=== PATIENT | female | born 1960 | race Caucasian/White ===

== ENCOUNTER → 2017-10-28 | Outpatient (CLI) | payer MEDICARE, OTHER ==
[~2017-10-28] MED LIST: ALBUTEROL2.5 MG/0.5 INH; ANTIDEPRESSANT PO; ASPIR 8181 MG PO; ATIVAN0.5 M1 PO; ATIVAN0.5 MG PO; CALCIUM 500 +1 EAC5 PO; CARVEDILOL12.5 MG PO; CELEXA40 MG PO; CLEOCIN HCL300 MG PO; CLONIDINE HCL0.1 MG PO; DOLOPHINE HCL10 MG PO; DOLOPHINE HCL5 MG PO; DUONEB 2.5-0.5 M3 ML INH; IRON PO; KLOR-CON 1010 MEQ PO; LASIX 20 MG TAB20 MG PO; LEVAQUIN 500 M500 M2 PO; LIDODERM 5%1 PATC1 TRANSDERM; LIORESAL 10 MG10 MG PO; LISINOPRIL10 MG PO; MEDROLDOSEPACK PO; MELATONIN3 MG PO; METHADONE HCL5 MG PO; MULTIVITAMINS PO; NUVIGIL150 MG PO; OMEPRAZOLE40 MG PO; OXYCODONE HCL20 M1 PO; OXYGEN; OXYGEN NASAL; PREDNISONE 10 M10 M1 PO; PREDNISONE 10 M10 MG PO; PREDNISONE50 MG PO; PRILOSEC40 MG PO; PROTONIX40 M1 PO; RANITIDINE HCL300 MG PO; SERTRALINE HCL50 MG PO; VIT B12 PO; ZANAFLEX2 MG PO; ZANAFLEX4 MG PO; ZANTAC 150MG T150 MG PO; ZOLOFT50 MG PO
--- NOTE | 2017-11-02 07:21 | PAINCON ---
[facility] [address] [place] [address] PAIN MANAGEMENT CONSULTATION Name: VERMABRIDGETT S Room: [facility] Malathi#: [id number] Admission: 10/28/17 Attend Phys: Simon Smith Discharge: Date of : 58 Report #: [id number] THIS REPORT FOR: //name// CC: Jelly Valderrama The patient is a very pleasant 57-year-old female typically treated for chronic pain syndrome. She is status post both cervical and lumbar decompressive laminectomies requiring high risk complex medication management. Last seen in the pain clinic on 09/02/2017 and continued on baseline medications. Returns to the pain clinic today. She notes current pain medications are helping with chronic pain though she still rates her pain an 8 on VAS. She states she has lost about 9 pounds since last visit, simply has had some anorexia. PHYSICAL EXAMINATION: Does show a 5 feet 2 inches, 196 pounds female with a BMI of 35 kilograms per meter squared. She is using supplemental oxygen and oxygen saturation is 92% on 3 liters. Blood pressure is 115/61, pulse 93 and respirations 24. She uses a walker for balance. She had her spinal cord stimulator replaced by Dr. Lopez at the end of last year (09/18/2017). She has been unable to use this because she has not been able to charge the battery due to lack of the hardware device for charging. She notes that the device rep is looking into getting the new director craft center for her. 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 Patterson regarding the tremor issue. She may consider starting on a low dose Mirapex type agent. Otherwise from a pain standpoint, she is doing well on current medication including methadone 5 mg 2 in the morning, 1 at noon and 2 at night and tizanidine 4 mg for spasm. She uses a low dose lorazepam occasionally for insomnia. We reviewed the fact that opiate medications are being used to provide analgesia adequate to support activities of daily living, not attempting to achieve a specific pain score on the 0-10 Visual Analog Scale. The current opiate medications are providing sufficient analgesia to allow the patient to participate in activities of daily living. The patient is not exhibiting any aberrant behavior suggestive of drug diversion. The patient is not having any adverse reactions to medications. The patient is not suffering from daytime somnolence or mental acuity changes. The patient is managing opiate-induced constipation with appropriate wtgz-szw-pkqmofh agents and dietary considerations. The patient was counseled on concern for caution with operating a motor vehicle while using opiate medications. A physical exam was performed and the patient's functional status was evaluated. All patients with back pain were advised against the bed rest greater than 4 days and were advised to return to normal activities. [place] [address] PAIN MANAGEMENT CONSULTATION Name: BRIDGETT VERMA Room: [facility] Servin#: [id number] Admission: 10/28/17 Attend Phys: Simon Smith Discharge: Date of : 58 Report #: [id number] noted and the treatment plan was reviewed with the patient. All current medications, both prescribed and OTC were reviewed and reconciled on the electronic medical record. Tobacco screening was accomplished and smoking cessation was advised when indicated. BMI was noted and diet/exercise modification was recommended for all patients following outside normal parameters. I reviewed with the patient today their responsibilities to safeguard prescription medications, reviewed their responsibility to utilize medications only as prescribed by the physician. They are to seek and receive pain medications only from 1 physician group ( [facility]). They are to use 1 pharmacy and keep the clinic informed if they change pharmacies. Their responsibilities include making followup visits in a timely fashion and to avoid abrupt discontinuation of medication usage. Their responsibilities further include bringing their medications (bottles from the pharmacy with residual pills) to the visit for possible confirmation of pill counts and the patient understands it is their responsibility to submit to random drug screens to ensure both that the medications prescribed are present, and that no other controlled substances are present. All prescriptions provided today were generated electronically. PHYSICAL EXAMINATION: As noted above. RECOMMENDATION: Continue current medication unchanged for another 2 months. Follow up at that time and earlier if needed. I reviewed the patient's last random drug screen a little greater than a year ago from 01/2016. We will endeavor to repeat a random drug screen at next visit. Discharged in good and stable condition. <ELECTRONICALLY SIGNED> By: Tanner Valderrama DO 11/02/17 0721 [id number] Valderrama DO /nt
== END ==
LOC: M.PC 01:38
DX: G89.4 Chronic pain syndrome (principal); Z98.890 Other specified postprocedural states

== ENCOUNTER → 2017-12-23 | Outpatient (CLI) | payer MEDICARE, OTHER ==
[~2017-12-23] MED LIST changes: +NITROGLYCERIN0.4 MG SUBLING; +SINGULAIR 10 MG10 M1 PO; +SYMBICORT160 MCG/4. INH
--- NOTE | 2017-12-25 09:51 | PAINCON ---
[address] [address] PAIN MANAGEMENT CONSULTATION Name: VERMABRIDGETT S [id number] Admission: 12/23/17 Attend Phys: Simon Smith Discharge: Date of : 58 Report #: [id number] THIS REPORT FOR: //name// CC: Jelly Valderrama The patient is a 57-year-old female being treated for chronic pain syndrome. She is status post cervical and lumbar decompressive laminectomies, requiring complex medication management. She has a spinal cord stimulator, which had been placed quite some time ago. She had the IPG replaced in [facility] however, she apparently does not have a component needed to charge the IPG. Hence, it has been nonfunctional. Nonetheless, the patient presents to pain clinic today noting medications have been helpful. She rates her pain as 8 on a VAS. She notes pain is primarily across the back, into the buttocks. No significant radicular symptoms at this time. The patient claims she quit smoking 3 years ago. The last random drug screen 10/28/2017 was positive for methadone as expected, was also positive for cotinine. I queried the patient about this and she held steadfast that she had not been smoking though her does smoke and she is exposed to secondhand smoke. She does note she has had a 10-pound weight loss. She is down to 182 pounds, BMI is 33.9 kilograms per meter squared. Blood pressure 122/74, pulse is 102, respirations are 20. She is alert and oriented to person, place and time, judged to be a reasonable historian. With 3 liters of supplemental oxygen, her O2 sat is only 88%. She has some significant COPD. We talked about therapeutic options today. We will continue the patient on her baseline narcotic including methadone 5 mg, 2 in the morning, 1 at noon, 2 at night with occasional tizanidine for spasm. The patient congratulated about general smoking cessation and encouraged regarding same. We have elected to continue baseline narcotic unchanged. Follow up in 2 months for reevaluation, earlier if needed. <ELECTRONICALLY SIGNED> By: Tanner Valderrama DO 12/25/17 0951 1521 1947Tanner Valderrama DO /nt
== END ==
LOC: M.PC 02:30
DX: G89.4 Chronic pain syndrome (principal); Z79.899 Other long term (current) drug therapy

== ENCOUNTER → 2018-02-17 | Outpatient (CLI) | payer MEDICARE, OTHER ==
--- NOTE | 2018-02-18 07:50 | PAINCON ---
[facility] [address] [place] [address] PAIN MANAGEMENT CONSULTATION Name: VERMABRIDGETT [facility] [id number] Admission: 02/17/18 Attend Phys: Simon Smith Discharge: Date of : 58 Report #: [id number] THIS REPORT FOR: //name// CC: Jelly Valderrama The patient is a 57-year-old female, prior seen in the pain clinic on 12/23/2017. Returns to pain clinic today for prolonged visit. She was seen from 9:50-10:20. Greater than 50% of this time was spent counseling the patient. The patient has a spinal cord stimulator in place, which does help with back and leg pain. She has ongoing multiple pain generators. Axial back and lumbar radicular pain with comorbidities including significant psychiatric issues and COPD, requiring BiPAP with daytime somnolence due to ongoing sleep disruption and medications. She had her IPG changed for the spinal cord stimulator in 08/2017. This does seem to be helpful. She continues with 5 mg methadone, 2 tablets in the morning, 1 at noon, and 2 at night. She uses no breakthrough opiates. Does use tizanidine 4 mg t.i.d. for spasm. She is having recurrent falls. In fact, she fell out of her bed simply falling asleep sitting on the side of the bed due to sequelae of her sleep apnea and soporific effects of medication. Her psychiatrist started her on aripiprazole. After one week, her suggested she discontinue that due to ongoing dramatic sedation. She notes that her physical functional status is significantly limited by COPD and shortness of breath (she uses 3 liters per minute nasal cannula with fairly deconditioned general physical status). PHYSICAL EXAMINATION: Today is relatively unchanged, 5 feet 2 inches, 172 pounds female, BMI is 31.6 kilograms per meter, 57 years of age. Blood pressure 132/76, pulse 96, respirations 16. Oxygen saturation is diminished at 90% on 3 liters nasal cannula. She does have osteoporosis and gets an annual infusion for same. She is generally alert and oriented at present, though notes that it is very easy for her to fall asleep. She rises from chair using armrest, a little bit of an ataxic gait. Diffuse tenderness across the low back. Lower extremity strength is symmetric. We reviewed the fact that opiate medications are being used to provide analgesia adequate to support activities of daily living, not attempting to achieve a specific pain score on the 0-10 Visual Analog Scale. The current opiate medications are providing sufficient analgesia to allow the patient to participate in activities of daily living. The patient is not exhibiting any aberrant behavior suggestive of drug diversion. The patient is not having any adverse reactions to medications. The patient is not suffering from daytime somnolence or mental acuity changes. The patient [place] [address] PAIN MANAGEMENT CONSULTATION Name: VERMABRIDGETT S [facility] [id number] Admission: 02/17/18 Attend Phys: Simon Smith Discharge: Date of : 58 Report #: [id number] constipation with appropriate pgbg-xfq-[id number] agents and dietary considerations. The patient was counseled on concern for caution with operating a motor vehicle while using opiate medications. A physical exam was performed and the patient's functional status was evaluated. All patients with back pain were advised against the bed rest greater than 4 days and were advised to return to normal activities. Pain score assessment was noted and the treatment plan was reviewed with the patient. All current medications, both prescribed and OTC were reviewed and reconciled on the electronic medical record. Tobacco screening was accomplished and smoking cessation was advised when indicated. BMI was noted and diet/exercise modification was recommended for all patients following outside normal parameters. I reviewed with the patient today their responsibilities to safeguard prescription medications, reviewed their responsibility to utilize medications only as prescribed by the physician. They are to seek and receive pain medications only from 1 physician group ( [facility]). They are to use 1 pharmacy and keep the clinic informed if they change pharmacies. Their responsibilities include making followup visits in a timely fashion and to avoid abrupt discontinuation of medication usage. Their responsibilities further include bringing their medications (bottles from the pharmacy with residual pills) to the visit for possible confirmation of pill counts and the patient understands it is their responsibility to submit to random drug screens to ensure both that the medications prescribed are present, and that no other controlled substances are present. All prescriptions provided today were generated electronically. RECOMMENDATIONS: 1. I had a long discussion with the patient and her today. Strongly recommend that she follow up with her psychiatrist regarding less sedating central-acting agents for her bipolar disorder. 2. Strongly recommend she follow up with her child welfare director regarding perhaps addition of a stimulant to help with her sleep apnea (modafinil? Adderall?). We will discontinue tizanidine due to concern for sedation and rotate the baclofen. The patient has weaned down dramatically on her opiate analgesics, I took over her care in 12/2014. At that time, she was taking 240 mEq of morphine via OxyContin and oxycodone. We have weaned down to 20 mg of methadone a day, roughly equivalent to 80 mg of morphine. We will continue this agent with an eye towards weaning as able. I have taken the liberty of writing for 2 months of current medication. We will have her follow up with [place] [address] PAIN MANAGEMENT CONSULTATION Name: BRIDGETT VERMA [facility] [id number] Admission: 02/17/18 Attend Phys: Simon Smith Discharge: Date of : 58 Report #: [id number] Discharged in good and stable condition after prolonged visit, greater than 30 minutes spent counseling the patient and her today. <ELECTRONICALLY SIGNED> By: Tanner Valderrama DO 02/18/18 0750 1425 1920Tanner Valderrama DO /nt
== END ==
LOC: M.PC 09:30
DX: M54.5 Low back pain (principal); J44.9 Chronic obstructive pulmonary disease, unspecified; M79.606 Pain in leg, unspecified

== ENCOUNTER → 2018-05-13 | Outpatient (CLI) | payer MEDICARE, OTHER ==
[~2018-05-13] MED LIST changes: +AUGMENTIN 875-1 EACH PO; +DILAUDID 2 MG TA2 MG PO; +NYSTATIN100000 UNI SW&SWALLOW
--- NOTE | 2018-06-04 17:38 | PAINCON ---
[address] [address] PAIN MANAGEMENT CONSULTATION Name: VERMABRIDGETT S Room: [facility] Malathi#: [id number] Admission: 05/13/18 Attend Phys: Khari Moody MD Discharge: Date of : 58 Report #: [id number] THIS REPORT FOR: //name// CC: Jelly Moody DATE OF SERVICE: 05/13/2018 This is my first visit with the patient. She has been followed by Dr. Tanner Valderrama. FOLLOWUP HISTORY: The patient is a 57-year-old female who has been followed in the pain clinic because of chronic pain. She has a history of a spinal cord stimulator in place. This has been helpful with her back pain and leg pain. She has multiple pain generators ongoing. She has axial pain and lumbar radicular pain with comorbidities, which include significant psychiatric issues, COPD requiring BiPAP with daytime somnolence due to ongoing sleep disruption and medications. She has a spinal cord stimulator in place since 2016. This was in August that it was placed. She feels that it has been helpful. Continues to find methadone 5 mg 2 tablets in the morning, 1 at noon, and 2 at night helpful. She is not using any breakthrough opioid medications. She does use tizanidine to help with muscle spasms. She has fallen. She was sitting on the bedside and fell asleep. She has been followed by her psychiatrist. She is on aripiprazole. Her physical function and status is significantly limited by her COPD and shortness of breath. She uses 3 liters per minute nasal cannula and is very deconditioned physically. Dr. Valderrama talked with the patient and her regarding her medications. They were to speak with him in regards to the sedating effects of medication for her bipolar disorder. Dr. Valderrama suggested follow up with her occupational medicine specialist regarding the possible use of a stimulant such as Adderall or modafinil. He discontinued the use of her tizanidine because of the sedation. The patient was on a morphine equivalent 240 mEq back in 2014 when he saw her. At this juncture, she has been decreased to morphine equivalents of 80 mg. She has returned today for renewal of her medications. ALLERGIES: SULFA AND LATEX. CURRENT MEDICATIONS: Albuterol 2.5 mg, aspirin 81 mg, Celexa 40 mg, clonidine 0.1 mg, Lasix 20 mg 2 tablets b.i.d., duloxetine, DuoNeb 2.5/0.5 inhalations 4 times daily, Levaquin, methadone 2 tablets 5 mg a.m. and 1 tablet at noon, and 2 tablets at bedtime, multivitamin, oxygen, Protonix 40 mg, potassium, prednisone 10 mg, Zanaflex 2 tablets 2 mg, iron supplement, and vitamin B12. PAST MEDICAL HISTORY: Anemia, asthma, heart disease, coronary artery disease, kidney disease, single kidney, acid reflux, irritable bowel syndrome, vertigo, [place] [address] PAIN MANAGEMENT CONSULTATION Name: BRIDGETT VERMA Room: [facility] Malathi#: [id number] Admission: 05/13/18 Attend Phys: Khari Moody MD Discharge: Date of : 58 Report #: [id number] syncope, panic attacks, and hypertension. PAST SURGICAL HISTORY: Total hip replacement in 2008 on the right side, left total hip replacement in 2008, and neck surgery. Spinal cord stimulator, the patient states that she has had spinal cord replaced and then has ____ spinal cord in place. PAIN CLINIC ASSESSMENT: 1. History of osteoarthritis. The patient states that she has osteoporosis. 2. Height 5 feet 2 inches, weight 194 pounds, BMI is 35. 3. Vital signs: Blood pressure 131/70, heart rate 100, respiratory rate 18, room air saturation 90% on 3 liters of oxygen. Temperature 98.1. Pain score 9/10 pain in lower back as well as pain in the neck. 4. Fall risk. The patient has not fallen in the last 3 months. 5. Blood thinner. The patient is not on a blood thinning medication. 6. History of hypertension. The patient is being treated for hypertension. 7. Opioids greater than 6 weeks. The patient does receive opioid medications from the pain clinic. 8. Risk assessment tool. 9. Functional assessment tool. 10. Recreational drug use. The patient denies use of recreational drug use. 11. Tobacco: The patient has a 30-pack year history of smoking. 12. Alcohol: The patient denies use of alcohol. PHYSICAL EXAMINATION: GENERAL: The patient is an obese white female, who appears her stated age. She is alert and oriented x 3. Affect is appropriate. Speech is fluent. HEENT: Normocephalic, atraumatic. Extraocular eye muscles intact. The patient has nasal cannula in place with 3 liters of oxygen running. NECK: Without adenopathy or JVD. LUNGS: Decreased breath sounds given secondary to the patient's body habitus. HEART: Regular rate. ABDOMEN: Protuberant. MUSCULOSKELETAL: Without significant scoliosis, kyphosis, or lordosis. The patient has complained of back pain. Has low back pain. She has pain in her hips. IMPRESSION: 1. Low back pain as well as hip pain. 2. Anemia. 3. Asthma. 4. Heart disease. 5. Coronary artery disease. 6. Kidney disease. 7. Single kidney. 8. [place] [address] PAIN MANAGEMENT CONSULTATION Name: BRIDGETT VERMA Room: [facility]#: [id number] Admission: 05/13/18 Attend Phys: Khari Moody MD Discharge: Date of : 58 Report #: [id number] 9. Irritable bowel syndrome. 10. Vertigo. 11. Syncope. 12. Panic attacks. 13. Hypertension. RECOMMENDATIONS: We discussed treatment options with the patient. We will continue with her current medical regimen. We will continue to monitor her respiratory status. Hopefully, she will be able to continue to maintain use of opioid medications and avoid untold complications. A script for her medications have been written. A script for tizanidine and methadone have been renewed. She will call us if she has any concerns. We would like to thank you for letting us participate in her care. We hope she continues to improve. <ELECTRONICALLY SIGNED> By: Khari Moody MD 06/04/18 1738 [id number] [id number]. Javier Moody MD /nt
== END ==
LOC: M.PC 05:01
DX: M54.5 Low back pain (principal); M25.552 Pain in left hip; I25.10 Atherosclerotic heart disease of native coronary artery without angina pectoris; J45.909 Unspecified asthma, uncomplicated; K21.9 Gastro-esophageal reflux disease without esophagitis; I51.9 Heart disease, unspecified; N28.9 Disorder of kidney and ureter, unspecified; D64.9 Anemia, unspecified

== ENCOUNTER → 2018-07-08 | Outpatient (CLI) | payer MEDICARE, OTHER ==
[~2018-07-08] MED LIST changes: -AUGMENTIN 875-1 EACH PO; -DILAUDID 2 MG TA2 MG PO; -NITROGLYCERIN0.4 MG SUBLING; -NYSTATIN100000 UNI SW&SWALLOW; -SINGULAIR 10 MG10 M1 PO; -SYMBICORT160 MCG/4. INH
--- NOTE | 2018-07-12 10:00 | PAINCON ---
[address] [address] PAIN MANAGEMENT CONSULTATION Name: RACHEL VERMANA Natalia Room: [facility].#: [id number] Admission: 07/08/18 Attend Phys: Khari Moody MD Discharge: Date of : 58 Report #: [id number] THIS REPORT FOR: //name// CC: Jelly Moody DATE OF SERVICE: 07/08/2018 CHIEF COMPLAINT: Chronic pain. HISTORY: The patient is a 58-year-old female who has been followed in the Pain Clinic because of chronic pain. She has a history of spinal cord stimulator placement. She is having pain and discomfort today, which is most problematic involving her left hip. She states that she has had a replacement of her hip on the left side. This was in about 2006. She did recurrent fall about 3 weeks ago. She has noted some increased pain since that fall. States that she is going to see an orthopedic surgeon in the next few days. Continues to have some axial pain as well as some lumbar radicular pain. As you may recall, she has some problems with COPD. States that she stopped smoking about 4 years ago. She is on BiPAP. Does have some somnolence. She has returned today with a desire of having her medications renewed. ALLERGIES: SULFA and LATEX. CURRENT MEDICATIONS: Albuterol 2.5 mg, aspirin 81 mg, Celexa 40 mg, clonidine 0.1 mg, Lasix 20 mg, 2 tablets b.i.d., duloxetine 2.5/0.5 four inhalations daily, Levaquin, methadone 2 tablets 5 mg a.m. and 1 tablet at noon and 2 tablets at bedtime, multivitamin, oxygen, Protonix 40 mg, potassium, prednisone 10 mg, Zanaflex 2 tablets of 2 mg, iron supplement, vitamin B12. PAIN CLINIC ASSESSMENT/PQRS: 1. History of osteoarthritis. The patient is being treated for osteoarthritis. She has had hip replacement on the left. Also, states that she has been treated for rheumatoid arthritis. 2. Height 5 feet 2 inches, weight 186 pounds, BMI is 34.1. 3. Vital signs: Blood pressure 147/80, heart rate 91, respiratory rate 16, room air saturation is 98% on 3 liters nasal cannula. The patient has nasal cannula in place. Temperature 98.3. 4. Pain score 10/10. 5. Pain intensity 10/10. 6. Fall risk. The patient states that she has fallen about 3 weeks ago. Feels that that might have some implication on the pain and discomfort she is having in her hip. 7. Blood thinner. The patient is not on a blood thinning medication. 8. History of hypertension. The patient is being treated for hypertension. 9. Opioids greater than 6 weeks. The patient [place] [address] PAIN MANAGEMENT CONSULTATION Name: BRIDGETT VERMA Room: [facility]#: [id number] Admission: 07/08/18 Attend Phys: Khari Moody MD Discharge: Date of : 58 Report #: [id number] from one source, the Pain Clinic. 10. Risk assessment tool. 11. Functional assessment tool. 12. Recreational drug use. The patient denies use of recreational drugs. 13. Tobacco: The patient has a 15-agbh-asxx history of smoking. States that she stopped 4 years ago. 14. Alcohol: The patient denies use of alcohol. 15. The patient does ____ smoked from her significant other who does smell significantly of tobacco. PHYSICAL EXAMINATION: GENERAL: The patient is a well-developed, obese white female, appears her stated age. She is alert and oriented x 3. Affect is appropriate. Speech is fluent. HEENT: Normocephalic, atraumatic. Extraocular eye muscles intact. The patient is on nasal cannula with 3 liters of oxygen running. NECK: Without adenopathy or JVD. LUNGS: Decreased breath sounds secondary to the patient's body habitus. HEART: Regular rate. ABDOMEN: Protuberant. Bowel sounds present. MUSCULOSKELETAL: Without significant scoliosis, kyphosis or lordosis. The patient is in a chair. Does note some complaint of pain in her low back as well as pain down in her hips and pain into the left hip in particular. IMPRESSION: 1. Low back pain as well as left hip replacement, status post fall about 3 weeks ago with pain in the left hip. 2. Anemia. 3. Asthma. 4. Heart disease. 5. Coronary artery disease. 6. Kidney disease. 7. Single kidney. 8. Acid reflux. 9. Irritable bowel. 10. Vertigo. 11. Syncope. 12. Panic attacks. 13. Hypertension. RECOMMENDATIONS: We discussed treatment options with the patient. At this juncture, we will continue with her current medical regimen. A script for tizanidine 4 mg 1 p.o. t.i.d., methadone 5 mg 1 tablet or 2 tablets in the morning. Total of 10 mg 1 tablet at noon, 5 mg 2 tablets at bedtime, 10 mg for a total of 25 mg of methadone, 150 tablets have been dispensed. The patient will follow up in [address] [place] [address] PAIN MANAGEMENT CONSULTATION Name: BRIDGETT VERMA Room: [facility]#: [id number] Admission: 07/08/18 Attend Phys: Khari Moody MD Discharge: Date of : 58 Report #: [id number] We would like to thank you for letting us participate in her care. We hope she continues to improve. <ELECTRONICALLY SIGNED> By: Khari Moody MD 07/12/18 1000 1453 [id number]. Javier Moody MD /nt
== END ==
LOC: M.PC 05:18
DX: G89.29 Other chronic pain (principal); M54.5 Low back pain; D64.9 Anemia, unspecified; J45.909 Unspecified asthma, uncomplicated; N28.9 Disorder of kidney and ureter, unspecified; K21.9 Gastro-esophageal reflux disease without esophagitis; I10 Essential (primary) hypertension; R42 Dizziness and giddiness; R55 Syncope and collapse; K58.9 Irritable bowel syndrome, unspecified; F41.0 Panic disorder [episodic paroxysmal anxiety]; I51.9 Heart disease, unspecified; I25.10 Atherosclerotic heart disease of native coronary artery without angina pectoris

== ENCOUNTER 2018-08-17 13:49 | Inpatient (IN) | payer MEDICARE, OTHER ==
[~2018-08-17] VITALS: Ht 157.5 cm; Wt 79.8 kg
[2018-08-17] MEDS ORDERED: SYMBICORT160 MCG/4. INH (14:16)
[2018-08-17] MEDS ORDERED: SINGULAIR 10 MG10 M1 PO (14:16)
[2018-08-17 14:42] LABS: HEMATOCRIT 35.5 % (37.0-47.0); HEMOGLOBIN 11.4 gm/dL (12.0-15.0); MCH 26.3 pg (26.0-34.0); MCV 82.3 fL (80.0-100.0); MPV 7.9 fl. (7.2-11.1); NUCLEATED RBCS 0 /100WBC; PLATELET COUNT* 149 thou/uL (150-400); RBC 4.32 mil/uL (4.20-5.00); RDW-CV 14.8 % (10.5-14.5)
[2018-08-17 14:49] LABS: INR 1.1; PROTIME 10.8 Seconds (9.20-11.50)
[2018-08-17 14:53] LABS: ANION GAP 5 mmol/L (7-16); BUN 20 mg/dL (7-18); CALCIUM 9.7 mg/dL (8.5-10.1); CHLORIDE 99 mmol/L (98-107); CO2 35 mmol/L (21-32); CREATININE 1.4 mg/dL (0.6-1.3); GLUCOSE 117 mg/dL (70-99); POTASSIUM 4.5 mmol/L (3.5-5.1); SODIUM 139 mmol/L (136-145)
[2018-08-17 14:56] LABS: BE 7.7 mmol/L (-2 to +3); HCO3 35.2 mmol/L (22.0-26.0); PCO2 64.2 mmHg (35.0-45.0); PO2 66.2 mmHg (75.0-100.0); pH 7.357 (7.340-7.450)
[2018-08-17 15:00] LABS: ALBUMIN 2.6 g/dL (3.4-5.0); ALKALINE PHOSPHATASE 311 U/L (46-116); LIPASE 247 U/L (73-393); NT-PRO BRAIN NAT PEPTIDE 334 pg/mL (<300); SGOT 376 U/L (15-37); SGPT 48 U/L (30-65); TOTAL BILIRUBIN 0.3 mg/dL (<0.1-1.0); TOTAL PROTEIN 6.9 g/dL (6.4-8.2); TROPONIN-I LEVEL <0.06 ng/mL (<0.06)
[2018-08-17 15:20] LABS: ABSOLUTE LYMPHOCYTES 1.4 thou/uL (0.8-5.3); ABSOLUTE MONOCYTES 0.1 thou/uL (0.0-1.2); ABSOLUTE NEUTROPHILS 6.5 thou/uL (1.6-8.1); ATYPICAL LYMPHS 9 %; PLATELET ESTIMATE ADEQUATE
--- NOTE | 2018-08-17 16:48 | EKG ---
[place] [address] ELECTROCARDIOGRAM REPORT Name: BRIDGETT VERMA Room: [place] [address] ADM IN [facility]#: [id number] Admission: 08/17/18 Attend Phys: Minoo Merino MD Discharge: Date of : 58 Report #: [id number] THIS REPORT FOR: //name// [facility] ED Test Date: 2018-08-17 Test Time: 14:28:23 Pat Name: BRIDGETT VERMA Department: Room: [facility] Gender: [place] Repairer: Kurt POOLE : 1960 Requested By: Mejia Norton Order Number: [id number] MD: Rowdy Morrison Measurements Intervals [place] Rate: 84 P: 34 HI: 140 QRS: -25 QRSD: 88 T: 31 QT: 385 QTc: 456 Interpretive Statements Sinus rhythm Borderline left axis deviation Borderline low voltage, extremity leads Compared to ECG 10/21/2015 23:38:08 Sinus tachycardia no longer present Electronically Signed On 08-17-2018 16:48:23 PARAOPTOMETRIC by Rowdy Morrison [email or web address] <ELECTRONICALLY SIGNED> By: Rowdy Morrison MD, FAC 08/17/18 1648 1428 1428 Rowdy Morrison MD, [facility] /EPI
[2018-08-17 17:53] LABS: URINE BILIRUBIN NEGATIVE (Negative); URINE BLOOD 1+ (Negative); URINE CLARITY CLEAR; URINE COLOR YELLOW; URINE GLUCOSE-RANDOM NEGATIVE (Negative); URINE KETONES NEGATIVE (Negative); URINE LEUKOCYTES-REFLEX 1+ (Negative); URINE NITRITE-REFLEX NEGATIVE (Negative); URINE PROTEIN NEGATIVE (Negative); URINE SPECIFIC GRAVITY 1.015 (1.005-1.030); URINE UROBILINOGEN 0.2 E.U./dl (0.2-1.0)
[2018-08-17 18:01] LABS: BACTERIA-REFLEX None Seen /HPF (None Seen); CRYSTALS None Seen /LPF (None Seen); HYALINE CASTS 0-3 Few /LPF (None Seen); SQUAMOUS NONE SEEN /LPF (0-3); URINE RBC 0-2 Rare /HPF (0-2); URINE WBC-REFLEX None Seen /HPF (0-5)
[2018-08-17 18:29] VITALS: BP 130/65
--- NOTE | 2018-08-17 19:12 | NUR ---
ADMITTED TO 305 THIS EVENING FROM ER. CONDITION STABLE, VSS, NO DISTRESS NOTED. EXT ASSIST WITH TRANSFER, UNSTEADY GAIT AND WEAKNESS NOTED. SETTLED IN BED, CALL LIGHT IN REACH, RAILS UP FOR REPOSITIONING. ABDOMEN DISTENDED, GREATER ON THE RIGHT, REBOUND TENDERNESS NOTED. DOES WEAR BRIEF FOR URGENCY, ORIENTED TO ROOM, SR ON MONITOR, NO ECTOPY NOTED. REPORT GIVEN TO BROADBAND TECHNICIAN NURSE, CONT POC.
[2018-08-17 20:00] VITALS: BP 144/70
[2018-08-17] MEDS ORDERED: NITROGLYCERIN0.4 MG SUBLING (20:32)
[2018-08-17 21:32] VITALS: BP 116/66
[2018-08-18] VITALS: BP 98/60
[2018-08-18 04:00] VITALS: BP 128/82
[2018-08-18 05:17] LABS: HEMATOCRIT 37.1 % (37.0-47.0); HEMOGLOBIN 11.9 gm/dL (12.0-15.0); MCH 26.7 pg (26.0-34.0); MCV 83.3 fL (80.0-100.0); MPV 8.4 fl. (7.2-11.1); RBC 4.45 mil/uL (4.20-5.00); RDW-CV 14.9 % (10.5-14.5); WBC 9.2 thou/uL (4.0-11.0)
[2018-08-18 05:31] LABS: ALBUMIN 2.6 g/dL (3.4-5.0); CALCIUM 9.5 mg/dL (8.5-10.1); CREATININE 1.4 mg/dL (0.6-1.3); MAGNESIUM 2.2 mg/dL (1.8-2.4); POTASSIUM 5.1 mmol/L (3.5-5.1); TOTAL BILIRUBIN 0.2 mg/dL (<0.1-1.0)
--- NOTE | 2018-08-18 06:57 | NUR ---
PATIENT ARRIVED ON FLOOR PRIOR TO SHIFT CHANGE. PATIENT ADMISSION HISTORY AND ASSESSMENT WAS COMPLETED CHARTED. PATIENT WAS GIVEN PAIN MEDICINE TWICE FOR ABDOMINAL PAIN WITH SOME RELIEF. PATIENT WEARS O2 3 A HOME AND 3L WITH BIPAP AT NIGHT. WILL CONTINUE TO MONITOR.
[2018-08-18 07:50] VITALS: BP 120/64
--- NOTE | 2018-08-18 10:05 | NUR ---
SW met with pt and pt to complete initial assessment, introduce self, and SW role. Pt alert, oriented. Pt lives at home with . Pt has oxygen at 3L at home through [employer] and a Bipap and a rollator. Pt has hx of HH services long ago. Pt does not anticipate any dc needs at this time. SW to continue to follow.
[2018-08-18 11:45] VITALS: BP 122/54
[2018-08-18 16:10] VITALS: BP 102/42
--- NOTE | 2018-08-18 18:58 | NUR ---
PATIENT RESTING IN BED. PATIENT IS UP STANDBY ASSIST FOR TRANSFER TO [facility]. PATIENT HAS HAD COMPLAINTS OF RUQ PAIN THROUGHOUT DAY, TREATED PARTIALLY WITH MEDICATION. PATIENT HAS FAIR TO POOR APPETITE. PATIENT HAD CT SCAN THIS AFTERNOON WITHOUT INCIDENT. IVF GIVEN 2 HOURS PRIOR AND 6 HOURS POST IV CONTRAST PER DR WEAVER. PATIENT DENIES ANY NEEDS AT THIS TIME. CALL LIGHT WITHIN REACH. WILL CONTINUE TO MONITOR.
[2018-08-18 21:00] VITALS: BP 138/81
[2018-08-19] VITALS: BP 126/69
[2018-08-19 04:00] VITALS: BP 105/65
[2018-08-19 04:52] LABS: HEMATOCRIT 36.9 % (37.0-47.0); HEMOGLOBIN 11.5 gm/dL (12.0-15.0); MCHC 31.2 g/dL (28.0-37.0); MCV 83.3 fL (80.0-100.0); RBC 4.43 mil/uL (4.20-5.00); RDW-CV 14.5 % (10.5-14.5); WBC 11.5 thou/uL (4.0-11.0)
[2018-08-19 05:00] LABS: CALCIUM 9.2 mg/dL (8.5-10.1); CREATININE 1.6 mg/dL (0.6-1.3); MAGNESIUM 2.2 mg/dL (1.8-2.4); POTASSIUM 4.6 mmol/L (3.5-5.1)
--- NOTE | 2018-08-19 05:35 | NUR ---
PATIENT SLEPT PART OF THE NIGHT. PATIENT WAS GIVEN PAIN MEDICINE ABOUT EVERY 3-4 HOURS WITH SOME RELIEF. IV REMAINS SALINE LOCKED. WILL CONTINUE TO MONITOR.
[2018-08-19 08:05] VITALS: BP 137/75
--- NOTE | 2018-08-19 08:25 | CON ---
[address] [address] CONSULTATION Name: BRIDGETT VERMA Room: [address] IN M.R.#: [id number] Admission: 08/17/18 Attend Phys: Minoo Merino MD Discharge: Date of : 58 Report #: [id number] THIS REPORT FOR: //name// CC: Minoo Patterson DO Office Records REQUESTING PHYSICIAN: Dr. Minoo Merino. REASON FOR CONSULTATION: Lung mass, COPD exacerbation. DISCUSSION: The patient is a 58-year-old woman who has a history of very severe COPD. She is steroid and O2 dependent. She does follow with Dr. Juan in our office. She presented to the Emergency Department with complaints of increasing pain in her right upper quadrant. She has had a poor appetite. She has been getting progressively more short of breath. Her notes she has been having trouble, but she had been resistant and did come into the hospital. Was then seen in the ED. Was noted to be actively bronchospastic. Chest x-ray revealed a left lung mass, which was new relative to studies done in 2017. She has not yet had a CT chest. Because of her abdominal pain, she did have a CT scan done. It was abnormal, suggesting she may have liver metastases as well as adenopathy. She has been started on bronchodilator therapy. She still has not had any improvement in her breathing today. Still having considerable amount of pain as well. She has a history of severe COPD as noted. Last spirometry from our office, which was done about a year ago, she had an FEV1 of only 0.82, which was 34% of predicted. Her FEV1/FVC ratio was 47%, all consistent with very severe airways obstruction. She is on chronic prednisone, to believe is that 5 mg alternated with 2.5 mg per day. She also has sleep apnea and is on BiPAP at night. Her pressures are 22/16 with 3 liters bled into her BiPAP machine. She is a former smoker, quit 3 years ago. Has at least 17-nnod-xjxy smoking history. PAST MEDICAL HISTORY: Besides the severe COPD, is remarkable for GERD, coronary artery disease, obstructive sleep apnea, she has had bilateral hip replacement, neck surgery, has also had chronic back pain, had a spinal cord stimulator placed, nephrectomy some years ago (for donation purposes), [place]ox[place] spotted fever. SOCIAL HISTORY: Former smoker as noted. [place] [address] CONSULTATION Name: BRIDGETT VERMA Room: [address] IN [facility]#: [id number] Admission: 08/17/18 Attend Phys: Minoo Merino MD Discharge: Date of : 58 Report #: [id number] does much of the work around the house as well as manages her medications. FAMILY HISTORY: Positive for lung cancer, diabetes, COPD, and coronary artery disease. REVIEW OF SYSTEMS: Four ROS was done. No positives as above. She has had a poor appetite. No real nausea or vomiting. She has not noted any blood in her stools. She has not had any hemoptysis. No actual chest pain. Because of her pain, she has had some difficulty sleeping. Her believes she has lost some weight recently due to her poor appetite, but unknown how much. No lower extremity edema. No recent falls. She does have to use a walker to get around. No difficulty swallowing, but notes after a couple of bites of food, she feels full. PHYSICAL EXAMINATION: GENERAL APPEARANCE: A woman who looks older than her stated age. She is quite uncomfortable. She has O2 running via nasal cannula. There is audible rhonchi heard as well as expiratory wheezes even without the stethoscope. HEENT: Head is normocephalic. Sclerae nonicteric. I do not appreciate any cervical or supraclavicular adenopathy. Mucous membranes look a little dry. NECK: No JVD. HEART: Regular, though mildly tachycardic. It is mostly obscured by overlying lung sounds. LUNGS: She has scattered rhonchi and expiratory wheezes heard throughout. Excursion is equal. ABDOMEN: Slightly full, but not really distended. She is markedly tender with palpation over the right upper quadrant area. EXTREMITIES: Lower extremities are negative for any significant edema. She has no calf tenderness. She has no clubbing. NEUROLOGIC: She is alert and oriented x 3. SKIN: Warm and dry. LABORATORY AND X-RAY FINDINGS: White blood cell count 9200, hemoglobin 11.9, hematocrit 37.1, platelets 150,000. Arterial blood gases done yesterday evening showed a pH of 7.36, pCO2 of 64, pO2 of 66, bicarbonate 37 with a saturation of 89%. On her chemistry, potassium is 5.1, BUN 19, creatinine 1.4, serum bicarbonate is 34. AST 337, ALT 44, alkaline phosphatase 310. Albumin is 2.6. Lipase was normal. INR was 1.1. A chest x-ray which was a portable study does reveal a left hilar mass, was not noted previously. CT scan of her abdomen and pelvis was done without IV contrast. The liver is markedly abnormal, all consistent with multiple masses consistent with metastatic disease. She had periportal and peripancreatic adenopathy. Some of the retroperitoneal lymph nodes are also enlarged. Kidney was surgically absent. IMPRESSION: 1. Chronic obstructive pulmonary disease exacerbation. This is markedly [facility] [address] [place] [address] CONSULTATION Name: BRIDGETT VERMA Room: [address] IN M.R.#: [id number] Admission: 08/17/18 Attend Phys: Minoo Merino MD Discharge: Date of : 58 Report #: [id number] bronchospastic on exam. 2. Acute on chronic respiratory failure. Hypoxic and hypercapnic. Appears to have chronic hypercapnia baseline in addition to her hypoxemia. 3. New left lung mass. Details are not clear. She has not yet had a CT chest. Unfortunately, with other imaging studies, it is certainly very worse and that she has metastatic cancer. May be a lung primary. 4. Elevated transaminases. 5. Mild anemia. 6. Obstructive sleep apnea, remains compliant with her BiPAP at night. 7. Overall prognosis appears quite guarded. RECOMMENDATIONS: 1. Maintain aggressive bronchodilator regimen. DuoNeb every 4 hours, IV steroids. 2. We will also add Brovana while she is here. 3. When able, get followup imaging studies done. 4. If she can achieve significant enough pulmonary improvement, can evaluate for possibility of a biopsy. We will need to have full imaging in order to make decision as to what would be the safest approach for her. Certainly, it does appear she will be a extremely poor candidate for bronchoscopy given her severe lung disease and hypercapnia. 5. Discussed also briefly with Dr. Hernandez. The patient's was in the room as well and we did discuss her imaging studies. <ELECTRONICALLY SIGNED> By: Rudolph Altman MD 08/19/18 0825 1100 1902Deandra Lockhart MD /nt
[2018-08-19 15:59] VITALS: BP 132/78
--- NOTE | 2018-08-19 18:48 | NUR ---
PATIENT RESTING IN BED. PATIENT IS UP MODERATE ASSIST FOR TRANSFER. PATIENTHAS COMPLAINTS OF RUQ PAIN WITH PARTIAL RELIEF PROVIDED WITH PAIN MEDICATION. PATIENT LUNG SOUNDS ARE COARSE AND WHEEZY. PATIENT DENIES ANY TROUBLE BREATHING. PATIENT DENIES ANY NEEDS AT THIS TIME. CALL LIGHT WITHIN REACH. WILL CONTINUE TO MONITOR.
[2018-08-20 00:14] VITALS: BP 143/83
[2018-08-20 04:41] VITALS: BP 150/79
--- NOTE | 2018-08-20 05:23 | NUR ---
CONTACTED PHYSICIAN DURING SHIFT REGARDING BRIGHT RED BLOOD IN PATIENTS STOOL. NEW ORDERS GIVEN TO START PUSH PROTONIX, CBC TO BE DRAWN AND GI CONSULTED. PAIN CONTROLLED WITH ORAL PAIN MEDICATION. PATIENT HAS SLEPT MOST OF THE NIGHT. PATIENT UP WITH ASSIST X 1 TO BSC. IV IN RIGHT FOREARM-SL. VSS ON 3L 02 VIA NASAL CANNULA. PATIENT INSTRUCTED TO USE CALL LIGHT WHEN NEEDING ASSISTANCE. HOURLY ROUNDS MADE. WILL CONTINUE WITH PLAN OF CARE AND NURSING TO MONITOR.
[2018-08-20 08:21] VITALS: BP 140/75
[2018-08-20 08:35] LABS: CALCIUM 9.4 mg/dL (8.5-10.1); CREATININE 1.7 mg/dL (0.6-1.3); POTASSIUM 4.9 mmol/L (3.5-5.1)
--- NOTE | 2018-08-20 10:12 | CON ---
[address] [address] CONSULTATION Name: BRIDGETT VERMA Room: [address] IN .R.#: [id number] Admission: 08/17/18 Attend Phys: Minoo Merino MD Discharge: Date of : 58 Report #: [id number] THIS REPORT FOR: //name// CC: Minoo Merino Jelly Leonardo DATE OF SERVICE: 08/18/2018 CONSULTING PHYSICIAN: Dr. Merino. REASON FOR NEPHROLOGY CONSULTATION: She needs to get IV contrast and the creatinine was not normal. REASON FOR ADMISSION: Shortness of breath and abdominal pain. HISTORY OF PRESENT ILLNESS: This is a 58-year-old female who has past medical history of anxiety, solitary kidney, COPD, who came in with right upper quadrant abdominal pain and COPD exacerbation. She takes Lasix at home for leg swelling, she takes about 60 mg twice a day. Her creatinine has been staying stable 1.4-1.5 and this looks like is her baseline. She donated her right kidney to her son in 1994. Her son was also born with 1 kidney, but family is not sure what was exactly wrong with his kidney and he is currently on his third renal transplant. The patient had a CT scan of her abdomen and pelvis, which showed normal looking left kidney, but it showed possible diffuse hepatic metastatic disease with new retroperitoneal lymphadenopathy. When I asked the patient, she denies any history of previously diagnosed cancer. She is supposed to get an IV contrast study to further delineate her cancer, but because of her elevated creatinine we have been consulted. She is on 3 liters of oxygen at home and that is what she is on over here too. She has been started on IV fluids this morning in anticipation for CT scan. ALLERGIES: SULFA AND LATEX. REVIEW OF SYSTEMS: As mentioned in history of present illness. HOME MEDICATIONS: Include methadone, tizanidine, calcium carbonate, prednisone, lorazepam, sertraline, budesonide, montelukast, multivitamins, albuterol, aspirin, ipratropium, pantoprazole, nitroglycerin, Lasix 60 mg twice a day, potassium chloride 10 mEq daily and oxygen. PAST MEDICAL AND SURGICAL HISTORY: Includes COPD, IBS, hip replacement bilateral, neck surgery with nelly placement for that and spinal stimulator, chronic back pain, she donated her right kidney 20 years ago, and panic attacks. FAMILY HISTORY: Her son is on dialysis, exact etiology is not clear. He was born with solitary kidney. Her son was on dialysis [place] [address] CONSULTATION Name: BRIDGETT VERMA Room: [address]#: [id number] Admission: 08/17/18 Attend Phys: Minoo Merino MD Discharge: Date of : 58 Report #: [id number] third kidney transplant. SOCIAL HISTORY: She has stopped smoking. She lives with her very supportive . She does not take alcohol or use illicit drugs. PHYSICAL EXAMINATION: VITAL SIGNS: Blood pressure is 120/64, pulse is 89, temperature is 36.7, respiratory rate is 16 and pulse ox is 94% on 3 liters of oxygen by nasal cannula. GENERAL: She is awake and alert and oriented. She is in distress because of some shortness of breath. HEAD, EYES, EARS, NOSE AND THROAT: Mucous membranes are moist. NECK: There is no JVD. CHEST: Has bilateral diminished breath sounds and distant breath sounds. No crackles or wheezing. CARDIOVASCULAR: S1, S2 normal. No murmurs. ABDOMEN: Currently distended. It was soft, it was not tender on my examination. EXTREMITIES: Lower extremities, no edema. NEUROLOGIC: Gross neurological functions are intact. PSYCHOLOGICAL: Mood and affect seem to be normal. LABORATORY DATA: Hemoglobin 11.9. Creatinine is 1.4, CO2 of 34. Creatinine has been staying stable 1.4-1.5. Other labs are reviewed. UA had no rbc's or protein on dipstick analysis. IMAGING: Chest x-ray and abdominopelvic CT were reviewed. ASSESSMENT: 1. The patient has history of solitary kidney, has chronic kidney disease stage 3, baseline creatinine 1.4-1.5. It is possible that she could have developed some kidney insufficiency in connection with diuretic use. The left kidney was normal on examination and there was no significant blood or protein on urine dipstick. She should follow up as an outpatient with us for her kidney disease. 2. History of solitary kidney, donated her right kidney in 1994 to her son. 3. Possible diffuse hepatic metastatic disease, Oncology has been consulted for her. 4. Need for IV contrast to further delineate her cancer. 5. Chronic obstructive pulmonary disease with exacerbation. 6. Chronic back pain. PLAN: Her risk for contrast-induced nephropathy is about 14% with 0.12% chances of needing dialysis. We will hold off on Lasix and will give her normal saline at 100 mL an hour for now and then to be continued for 6 hours after her contrast study and then stopped, and we will monitor her creatinine. The [address] [address] CONSULTATION Name: BRIDGETT VERMA Room: [address] IN [facility]#: [id number] Admission: 08/17/18 Attend Phys: Minoo Merino MD Discharge: Date of : 58 Report #: [id number] patient is willing to go for contrast study. This was discussed with the patient and the patient's as well as the patient's nurse, and we will continue to follow along with you. <ELECTRONICALLY SIGNED> By: Nicole Delong MD 08/20/18 1012 1022 [id number] Delong MD /nt
[2018-08-20 12:00] VITALS: BP 158/90
[2018-08-20 12:23] LABS: HEMATOCRIT 36.8 % (37.0-47.0); HEMOGLOBIN 11.7 gm/dL (12.0-15.0); MCH 26.1 pg (26.0-34.0); MCHC 31.7 g/dL (28.0-37.0); MCV 82.5 fL (80.0-100.0); MPV 7.9 fl. (7.2-11.1); RBC 4.46 mil/uL (4.20-5.00); RDW-CV 14.7 % (10.5-14.5)
[2018-08-20 16:00] VITALS: BP 164/82
--- NOTE | 2018-08-20 19:49 | NUR ---
Assumed care of pt 0700 this AM. Pt in room in bed resting with family at bedside. Pt moaning and grimicing states "I just hurt,". Pt given PRN medications as ordered. Blood in stool found, GI ordered a colonoscopy and EGD for tomorrow morning, pt NPO after midnight.
[2018-08-20 20:00] VITALS: BP 152/67
[2018-08-21] VITALS (7 sets, daily range): BP systolic 140–166; BP diastolic 74–102
--- NOTE | 2018-08-21 04:42 | NUR ---
ASSUMED PT CARE AT 1930. ASSESSMENT COMPLETED CHARTED. ABLE TO MAKE NEEDS KNOWN. PT C/O ABDOMINAL PAIN. PT IN BED RESTING AT THIS TIME. UP WITH 1 ASSIST TO BSC. WILL CONTINUE TO MONITOR.
[2018-08-21 05:06] LABS: HEMATOCRIT 37.6 % (37.0-47.0); HEMOGLOBIN 12.1 gm/dL (12.0-15.0); MCH 26.7 pg (26.0-34.0); MCHC 32.2 g/dL (28.0-37.0); MCV 82.8 fL (80.0-100.0); RBC 4.55 mil/uL (4.20-5.00); RDW-CV 15.1 % (10.5-14.5); WBC 14.5 thou/uL (4.0-11.0)
[2018-08-21 05:22] LABS: ALBUMIN 2.9 g/dL (3.4-5.0); CALCIUM 9.6 mg/dL (8.5-10.1); CREATININE 1.6 mg/dL (0.6-1.3); POTASSIUM 4.7 mmol/L (3.5-5.1); TOTAL BILIRUBIN 0.3 mg/dL (<0.1-1.0); TOTAL PROTEIN 7.4 g/dL (6.4-8.2)
--- NOTE | 2018-08-21 12:48 | CON ---
[address] [address] CONSULTATION Name: BRIDGETT VERMA Room: [address] IN .R.#: [id number] Admission: 08/17/18 Attend Phys: Minoo Merino MD Discharge: Date of : 58 Report #: [id number] THIS REPORT FOR: //name// CC: Minoo Patterson HISTORY OF PRESENT ILLNESS: This is a very pleasant 58-year-old female with past medical history significant for COPD, who presented initially with a COPD exacerbation. The GI service has been consulted for evaluation of bright red blood per rectum that the patient began experiencing this morning. The patient initially presented on 08/17/2018 for worsening dyspnea on exertion and shortness of breath. She reports that she began experiencing bright red blood per rectum this morning. She reports it has the one episode which covered about the half of the bedside commode that she was on. She denies any pain in the rectum and denies any significant abdominal pain. The patient also denies nausea, vomiting, fevers or chills. PAST MEDICAL HISTORY: As mentioned above, the patient has a past medical history of COPD and the patient was also noted to have depression. PAST SURGICAL HISTORY: The patient had neck surgery, bilateral hip replacement, kidney surgery about 20 years back. FAMILY HISTORY: There is no family history of colorectal cancer. SOCIAL HISTORY: The patient denies alcohol use. Denies recreational drug use, but does report smoking. REVIEW OF SYSTEMS: Comprehensive 10-point review of systems is negative except for shortness of breath, dyspnea on exertion and rectal bleeding. PHYSICAL EXAMINATION: VITAL SIGNS: Temperature 36.7, pulse rate 94, respirations 21, blood pressure 158/90. The patient's hemoglobin is 11.7, hematocrit 36.8. GENERAL: The patient is alert, awake, oriented x 3. HEENT: Pupils are equal, round, reactive to light and accommodation. Mucous membranes are moist. There is no congestion. LUNGS: Bilateral expiratory wheezes are detected. CARDIOVASCULAR: Rate and rhythm regular. ABDOMEN: Soft. There is no distention, guarding or rigidity. EXTREMITIES: Warm, well perfused. There is no edema. SKIN: Warm and dry. There is no focal neurological deficit. LABORATORY DATA: Hemoglobin 11.7, hematocrit 36.8, WBC count 14.0, platelet count 175. Sodium 136, potassium 4.9, chloride 95, bicarbonate 30, BUN 32, creatinine 1.7. INR 1.1. [place] [address] CONSULTATION Name: BRIDGETT VERMA Room: [address]#: [id number] Admission: 08/17/18 Attend Phys: Minoo Merino MD Discharge: Date of : 58 Report #: [id number] IMAGING: CT abdomen and pelvis demonstrated the hepatic mass is suggestive of metastatic disease. It appears to be multiple retroperitoneal portacaval lymphadenopathy as well. CT chest demonstrates 3.6 x 4.5 cm lesion posterior to the left hilum along with mediastinal lymphadenopathy. ASSESSMENT AND PLAN: This is a pleasant 58-year-old female with past medical history significant for smoking and chronic obstructive pulmonary disease, who is presenting with chronic obstructive pulmonary disease exacerbation. The patient was incidentally also found to have a lung mass with hepatic metastasis. The GI service was consulted for evaluation of hematochezia. We will perform EGD and colonoscopy tomorrow and further recommendations for the bleeding will be based on that. An EUS-guided biopsy of the mediastinal liver lesions as well as portacaval lymphadenopathy can be performed and this can be performed as an outpatient for further evaluation of this condition. <ELECTRONICALLY SIGNED> By: Geo Peña MD 08/21/18 1248 [id number] [id number] Peña MD /nt
[2018-08-21 14:58] LABS: HEMATOCRIT 35.7 % (37.0-47.0); HEMOGLOBIN 11.4 gm/dL (12.0-15.0); MCH 26.3 pg (26.0-34.0); MCHC 31.9 g/dL (28.0-37.0); MCV 82.4 fL (80.0-100.0); MPV 7.5 fl. (7.2-11.1); NUCLEATED RBCS 0 /100WBC; PLATELET COUNT* 163 thou/uL (150-400); RBC 4.34 mil/uL (4.20-5.00); RDW-CV 15.5 % (10.5-14.5); WBC 14.6 thou/uL (4.0-11.0)
[2018-08-21 15:24] LABS: ABSOLUTE LYMPHOCYTES 5.6 thou/uL (0.8-5.3); ABSOLUTE NEUTROPHILS 7.6 thou/uL (1.6-8.1); LYMPHOCYTES 38.2 %; POLYS 52.1 %
[2018-08-21 15:25] LABS: ABSOLUTE BASOPHILS 0.2 thou/uL (0.0-0.2); ABSOLUTE EOSINOPHILS 0.2 thou/uL (0.0-0.7); BASOPHILS 1.2 %; EOSINOPHILS 1.6 %; MONOCYTES 6.9 %
--- NOTE | 2018-08-21 16:55 | NUR ---
PT REMAINED ALERT AND ORIENTED THIS SHIFT. PT WAS BUMPED UP TO 5 LITERS 02 DUE TO SHORTNESS OF AIR AND WET LUNG SOUNDS. RESPIRATORY LATER IN THE DAY, SAW SPO2 STABLE AT 97%, DECREASED O2 TO 4L, SPO2 STAYED AT 97%. PT HAS CPAP IN ROOM FOR NIGHT TME USE. PT FLUIDS DECREASED TO 50ML.HR, COMPARED TO 100 ML/HR. DUE TO SHORTNESS OF AIR, STAT CHEST X-RAY ORDERED AND WAS NEGATIVE. PT WAS SCHEDULED FOR EGD AND COLONOSCOPY, HOWEVER PULOMONOLOGY SAW PT AND STATED PT IS NOT STABLE. PROCEDURE WAS CANCELLED. PT DIET CHANGED TO FULL LIQUIDS, ADVANCE TOLERATED. PT FAMILY WAS CONCERNED FOR PT AND DID NOT UNDERSTAND WHY BIOPSIES WERE NOT BEING SCHEDULED. EDUCATION GIVEN TO FAMILY STATING PT IS NOT STABLE AT THIS TIME. PT FAMILY WAS ACCEPTING OF THIS ANSWER. ONCOLOGY CALLED, FAMILY WANTED TO SPEAK WITH THEM. ONCOLOGY CALLED AND STATED THEY SAW THEM YESTERDAY AND GAVE INFORMATION, NO NEW INFORMATION WAS AVAILABLE AT THIS TIME. PT AND FAMILY WAS REVIEWED OF WHAT ONCOLOGY HAD PLANNED AND STATED WAITING FOR PT TO BE STABLE ENOUGH FOR BIOPSIES. PT C/O BLEEDING WHEN GOING TO BATHROOM. URINE WAS BLOODY AND BLOOD CLOT WAS PRESENT. CBC ORDERED STAT AND FOR 8 HOURS LATER. PT WAS C/O KNOT IN RIGHT CALVE AND PAIN PRESENT. VENOUS DOPPLER ORDERED OF THE LEGS BILATERALLY. DOPPLER HAS NOT BEEN DONE AT THIS TIME. PT C/O PAIN, SCHEDULED PAIN MEDS GIVEN WELL IV PRN DILAUDID, DOCTOR CHANGED DOSAGE FROM 0.5 TO 1.5 MG. PT C/O NAUSEA WITH ORAL PAIN MEDS, IV ZOFRAN GIVEN. PT STATED IT HELPED WITH NAUSEA AT THIS TIME. PT FAMILY MEMBERS REQUESTED THAT PT GET A SPONGE BATH TODAY, HOWEVER PT STATED PAIN LEVEL WAS TOO HIGH FOR A BATH. PT DID NOT WORK WITH PHYSICAL THERAPY DUE TO FATGUE AND PAIN. BED ALARM ON. FALL RISK PRECAUTIONS IN PLACE. HOURLY ROUNDING COMPLETED. WILL CONTINUE TO MONITOR.
--- NOTE | 2018-08-21 17:30 | NUR ---
REVIEWED AND AGREE WITH ALL CHARTING AND ASSESSMENTS COMPLETED BY RAMÍREZ Fisher RN
[2018-08-21 22:10] LABS: HEMATOCRIT 36.3 % (37.0-47.0); HEMOGLOBIN 11.4 gm/dL (12.0-15.0); MCH 26.2 pg (26.0-34.0); MCHC 31.4 g/dL (28.0-37.0); MCV 83.3 fL (80.0-100.0); MPV 7.5 fl. (7.2-11.1); NUCLEATED RBCS 0 /100WBC; PLATELET COUNT* 165 thou/uL (150-400); RBC 4.36 mil/uL (4.20-5.00); RDW-CV 14.9 % (10.5-14.5); WBC 15.4 thou/uL (4.0-11.0)
[2018-08-21 22:26] LABS: ABSOLUTE LYMPHOCYTES 1.8 thou/uL (0.8-5.3); ABSOLUTE MONOCYTES 0.6 thou/uL (0.0-1.2); METAMYELOCYTES 1 %
[2018-08-21 22:27] LABS: ABSOLUTE NEUTROPHILS 12.9 thou/uL (1.6-8.1); ANISOCYTOSIS Occasional; PLATELET ESTIMATE ADEQUATE; POLYCHROMASIA Occasional; TOXIC GRANULATION Occasional
[2018-08-22] VITALS (7 sets, daily range): BP systolic 126–182; BP diastolic 69–107
--- NOTE | 2018-08-22 06:04 | NUR ---
ALERT AND ORIENTED X4. UP WITH 1 ASSIST AND GAIT BELT TO BEDSIDE COMMODE. LARGE AMOUNT OF BLOOD WITH SMALL CLOTS NOTED IN COMMODE AFTER PATIENT WENT TO TOILET. PATIENT UNSURE IF IT HAD COME FROM BOWELS OR URINE. THIS AM URINE NOTED TO BE CLEAR YELLOW IN COLOR. PATIENT USING IV AND PO SCHEDULED PAIN MEDICATION TO HELP WITH ABDOMEN PAIN. NEW NAUSEA MEDICATION GIVEN AND PATIENT STATED IT WAS HELPFUL. O2 SAT AT 95% ON 4L O2 PER NC. WILL CONTINUE TO MONITOR.
--- NOTE | 2018-08-22 17:05 | NUR ---
PT REMAINED ALERT AND ORIENTED THIS SHIFT. PT HAD HEAD CT COMPLETED TODAY, RESULTS WERE UNREMARKABLE. VENOUS DOPPLER OF LOWER EXTREMITIES COMPLETED TODAY, RESULTS SHOWED NO DVT PRESENT. PT HAS NOT VOIDED AND BLOOD THIS SHIFT. PT BLOOD PRESSURE WAS ELEVATED, FIRST TAKE WAS 182/107, 2ND TAKE WAS 188/102. [facility] NOTIFIED, ONE TIME NORVASC ORDERED NOW, ONE TIME ENALAPRIL IV ORDERED NOW. NORVASC ORDERED SCHEDULED STARTING TOMORROW. WILL RECHECK BP. FALL RISK PRECAUTIONS IN PLACE. HOURLY ROUNDING COMPLETED. WILL CONTINUE TO MONITOR.
--- NOTE | 2018-08-22 17:57 | NUR ---
REVIEWED AND AGREE WITH ALL CHARTING AND ASSESSMENTS COMPLETED BY RAMÍREZ Fisher RN
[2018-08-23 04:00] VITALS: BP 144/70
[2018-08-23 05:03] LABS: HEMATOCRIT 32.5 % (37.0-47.0); HEMOGLOBIN 10.1 gm/dL (12.0-15.0); MCHC 31.1 g/dL (28.0-37.0); MCV 83.7 fL (80.0-100.0); MPV 7.8 fl. (7.2-11.1); RBC 3.88 mil/uL (4.20-5.00); RDW-CV 15.9 % (10.5-14.5); WBC 13.4 thou/uL (4.0-11.0)
[2018-08-23 05:15] LABS: CALCIUM 8.7 mg/dL (8.5-10.1); CREATININE 1.4 mg/dL (0.6-1.3); POTASSIUM 4.7 mmol/L (3.5-5.1)
--- NOTE | 2018-08-23 06:10 | NUR ---
UP WITH 1 ASSIST TO BEDSIDE COMMODE. VOIDING WITHOUT DIFFICULTY. HAD 2 LIQUID BLOODY STOOLS. LUNG SOUNDS REMAIN COARSE WITH A NONPRODUCTIVE COUGH. O2 SAT 98% WITH O2 AT 4L WHILE AWAKE. USES BIPAP WITH O2 AT 7L ADDED AT NIGHT TO KEEP O2 SAT IN 90'S. IV INFILTRATED RIGHT ARM AT BEGINING OF SHIFT. NEW IV STARTED LEFT HAND. CALL LIGHT WITHIN REACH. WILL CONTINUE TO MONITOR.
[2018-08-23 08:30] VITALS: BP 144/79
--- NOTE | 2018-08-23 13:04 | NUR ---
RIGHT BASILIC VESSEL ACCESSED FOR 4 YEMENI SINGLE LUMEN PICC. LINE PRE-TRIMMED TO 42 CM AND ADVANCED TO THE ZERO SUKH WITH NO RESISTANCE MET. UPPER ARM CIRCUMFERENCE ABOVE INSERTION SITE = 11". SHERLOCK MAGNET AND 3CG CONFIRMATION OF TIP TERMINATION AT THE CAVOATRIAL JUNCTION. SYLET REMOVED, INSERTION SITE DRESSED AND REPORT GIVEN TO SHRUTHI PINZON.
--- NOTE | 2018-08-23 14:21 | NUR ---
SW continuing to follow through dc. SW noted pt on 6L of oxygen and possible hospice discussion pending.
--- NOTE | 2018-08-23 15:27 | NUR ---
CALLED TO 3 WEST AFTER LINE PLACEMENT TO RE ASSESS INSERTION SITE IT IS OOZING. INSERTION SITE EXPOSE AND ACTIVE OOZING OF BLOOD OBSERVED. SITE DRESSING REMOVED AND CLEANSED WITH CHG. STERILE GAUZE APPLIED WITH COBAN WRAPPED SNUGLY TO CREATE PRESSURE OVER INSERTION SITE. RE-ASSESSED INSERTION SITE 2 HOURS LATER AT 14:30, STERILE GAUZE WAS SATURATED WITH ACTIVE OOZING OBSERVED. DR VELARDE NOTIFIED, AND AGREED TO ALLOW APPLICATION OF SURGICEL (HEMISTAT) TO INSERTINO SITE WITH PRESSURE DRESSING. PRESSURE HELD FOR FIVE MINUTES AND PRESSURE DRESSING APPLIED ON TOP OF HEMISTAT. COBAN WRAPPED WITH 2" LC WRAP. DISCUSSED PLANS TO MONITOR EVERY HOUR WITH SHRUTHI PINZON AND DAHLIA Shine RN TO FOLLOW UP IN 24 HOURS FOR STERILE DRESSING CHANGE.
[2018-08-23 15:54] VITALS: BP 167/85
[2018-08-23 17:39] LABS: HCO3 23.8 mmol/L (22.0-26.0); PCO2 45.3 mmHg (35.0-45.0); PO2 72.4 mmHg (75.0-100.0); pH 7.338 (7.340-7.450)
--- NOTE | 2018-08-23 18:51 | NUR ---
smith pleced this afternoon with 600ml return of clear yellow urins,pt had voided 400ml in commode 20min before. pt continues with o2 at 3l per nc woth sat 96. pt has p[roductive cough but swallows it. pt does become very sob with activity and did tolerate being in recliner this am. pt hopes to have liver bx done tomorrow and ir has asked she be npo after midnight. pt is alert and orientated and takes schedualed pain medication with good effect. has been here most of day.
[2018-08-23 19:31] VITALS: BP 159/82
[2018-08-24] VITALS: BP 153/90
[2018-08-24 04:00] VITALS: BP 167/85
--- NOTE | 2018-08-24 05:08 | NUR ---
ASSESSMENT COMPLETE. PT ABLE TO SLEEP PART OF THE NIGHT WITH HOME CPAP ON. PT REPORTS 9/10 ABDOMINAL PAIN. PRN PAIN MEDICATIONS GIVEN. PT DENIES N/V. PICC TO RIGHT UPPER ARM, FLUSHES AND DRAWS WITHOUT DIFFICULTY. PT IS Q2 TURN, UP WITH ONE ASSIST. SKIN W/D/I. SEE ASSESSMENT AND VITALS FOR OTHER DETAILS. CALL LIGHT WITHIN REACH. WILL CONTINUE PLAN OF CARE
[2018-08-24 05:49] LABS: ABSOLUTE BASOPHILS 0.1 thou/uL (0.0-0.2); ABSOLUTE LYMPHOCYTES 0.9 thou/uL (0.8-5.3); ABSOLUTE MONOCYTES 0.4 thou/uL (0.0-1.2); ABSOLUTE NEUTROPHILS 13.2 thou/uL (1.6-8.1); BASOPHILS 0.6 %; EOSINOPHILS 0.1 %; HEMATOCRIT 32.5 % (37.0-47.0); HEMOGLOBIN 10.4 gm/dL (12.0-15.0); LYMPHOCYTES 6.3 %; MCH 26.2 pg (26.0-34.0); MCHC 31.9 g/dL (28.0-37.0); MCV 82.1 fL (80.0-100.0); MPV 7.8 fl. (7.2-11.1); NUCLEATED RBCS 0 /100WBC; PLATELET COUNT* 136 thou/uL (150-400); RBC 3.96 mil/uL (4.20-5.00); RDW-CV 15.5 % (10.5-14.5); WBC 14.7 thou/uL (4.0-11.0)
[2018-08-24 06:02] LABS: ALBUMIN 2.9 g/dL (3.4-5.0); CALCIUM 9.3 mg/dL (8.5-10.1); CREATININE 1.4 mg/dL (0.6-1.3); POTASSIUM 3.8 mmol/L (3.5-5.1); TOTAL BILIRUBIN 0.4 mg/dL (<0.1-1.0); TOTAL PROTEIN 6.6 g/dL (6.4-8.2)
[2018-08-24 07:45] VITALS: BP 180/95
[2018-08-24 12:00] VITALS: BP 141/88
[2018-08-24 15:55] VITALS: BP 165/86
[2018-08-24 19:20] VITALS: BP 172/87
--- NOTE | 2018-08-24 19:48 | NUR ---
PT VSS THIS SHIFT AND WAS SR-ST ON THE MONITOR. PT HAS INCREASED PAIN THAT HAS BEEN ADDRESSED SINCE DR VILLARREAL SAW THE PT. HE SUGGESTED TO DR WESLEY HER PAIN MEDS BE INCREASED, ORDERS CHANGED AT THIS TIME. PT TO BE NPO AT MIDNIGHT FOR POTENTIAL LIVER BX TOMORROW. DR VILLARREAL DISUCSSED PT BEING SWICHED TO HOSPICE AND THE PT IS TAKING TIME TO DISCUSS AND CONSIDER THE OPTIONS. PT WAS UP TO THE CHAIR WITH PT THIS SHIFT AND TOLERATED WELL FOR A SHORT PERIOD OF TIME. PT TOLERATING IV ABX AT THIS TIME. PT HAS VERONICA IN PLACE AT THIS TIME. PT CHANGED TO MECHANICAL SOFT/CHOPPED DIET WITH THIN LIQUIDS PER DR WESLEY PER SPEECH RECOMMENDATION. PT EXPERIENCED HYPOGLYCEMIA AT THE BEGINNING OF THE SHIFT AND IT IMPROVED WITH D5 ADMINISTRATION AT THE BEGINNING OF THE SHIFT. PT HAS HAD FAMILY IN THE ROOM THIS SHIFT AND DID NOT GET MUCH REST. REPORT GIVEN TO PADMINI RN AT THIS TIME. WILL SIGN OFF
[2018-08-25] VITALS (13 sets, daily range): BP systolic 119–193; BP diastolic 52–92
--- NOTE | 2018-08-25 05:03 | NUR ---
ASSESSMENT COMPLETE. PT SLEPT MOST OF THE NIGHT. PRN PAIN MEDICATION GIVEN TWICE. PT ALBE TO SLEEP COMFORTABLY. PT IS ON CPAP DURING THE NIGHT WITH JOHNE SATS. TELE MONITOR SHOWS NSR IN THE 90'S. PT IS Q2 TURN. VERONICA IN PLACE WITH ADEQUATE OUTPUT. IV ZOSYN GIVEN SCHEDULED. PICC IN RIGHT UPPER ARM, DRAWS AND FLUSHES WITHOUT DIFFICULTY. Q6 ACCU CHECKS FOR HYPOGLYCEMIA. SEE ASSESSMENT AND VITALS FOR OTHER DETAILS. CALL LIGHT WITHIN REACH, WILL CONTINUE PLAN OF CARE
[2018-08-25 05:09] LABS: HEMATOCRIT 33.8 % (37.0-47.0); HEMOGLOBIN 10.5 gm/dL (12.0-15.0); MCHC 31.2 g/dL (28.0-37.0); MCV 83.3 fL (80.0-100.0); MPV 8.2 fl. (7.2-11.1); NUCLEATED RBCS 0 /100WBC; PLATELET COUNT* 122 thou/uL (150-400); RBC 4.05 mil/uL (4.20-5.00); RDW-CV 15.8 % (10.5-14.5); WBC 13.6 thou/uL (4.0-11.0)
[2018-08-25 05:25] LABS: ALBUMIN 2.8 g/dL (3.4-5.0); CALCIUM 9.4 mg/dL (8.5-10.1); CREATININE 1.5 mg/dL (0.6-1.3); POTASSIUM 3.8 mmol/L (3.5-5.1); TOTAL BILIRUBIN 0.5 mg/dL (<0.1-1.0); TOTAL PROTEIN 5.9 g/dL (6.4-8.2)
[2018-08-25 05:34] LABS: ABSOLUTE EOSINOPHILS 0.1 thou/uL (0.0-0.7); ABSOLUTE LYMPHOCYTES 0.7 thou/uL (0.8-5.3); ABSOLUTE MONOCYTES 0.3 thou/uL (0.0-1.2); ABSOLUTE NEUTROPHILS 12.5 thou/uL (1.6-8.1); ANISOCYTOSIS 1+; METAMYELOCYTES 1 %; MYELOCYTES 3 %; PLATELET ESTIMATE DECREASED; POIKILOCYTOSIS 1+
--- NOTE | 2018-08-25 12:00 | NUR ---
WAS ASKED TO SEE PT RE: DNR/LIVING WILL. MET WITH PT AND SPOUSE, PT HAS COPY OF DPOA AND LIVING WILL IN CHART. DISCUSSED WITH DR VELARDE, PT AND SPOUSE STATE SHE IS DNR. WENT BACK IN ROOM TO UPDATE SPOUSE AND PT RE: DISCUSSION WITH . SPOUSE THEN ASKED ABOUT HOSPICE. DISCUSSED HOSPICE AND OPTIONS. SPOUSE STATED HE WOULD NOT BE ABLE TO CARE FOR PT AT HOME BUT DTR IS WILLING TO AT HER HOME. DISCUSSED HOSPICE AT HOME, HOSPICE HOUSE AND HOSPICE IN LTC. THEY PREFER HOUSE OR HOME, NOT LTC. CHOSE TO TALK WITH [facility]. CALLED AND FAXED REFERRAL TO [facility], SOMEONE WILL BE OUT TO SEE PT AROUND 3PM [facility] [phone] FAX [phone]
--- NOTE | 2018-08-25 13:09 | NUR ---
Nutrition: RD spoke with RN. Pt is going to go hospice, but not likely discharging yet today. Seen for LOS. Will defer further assessment. RD available via consult.
--- NOTE | 2018-08-25 15:58 | NUR ---
LUZMARIA WITH [facility] ARRIVED TO SPEAK WITH THE PATIENT, SPOUSE, AND DTR TO PROVIDE HOSPICE INFO AND EVAL VISIT. LUZMARIA INFORMS THAT THE PATIENT QUALIFIES FOR HOSPICE HOUSE AND IT APPEARS THAT THE FAMILY IS ONBOARD. D/C SHEARER SCREEN MEASURER AND TRIMMER SPOKE TO THE PATIENT AND FAMILY TO CONFIRM THIS INFO. PATIENT AND FAMILY INFORM THAT THEY WOULD LIKE TO SIGN-ON WITH [facility] AT D/C AND D/C TO THE HOSPICE HOUSE. PATIENT AND FAMILY INFORM THAT IF THE PATIENT NEEDS TO D/C SOMEWHERE AFTER THE HOSPICE HOUSE THE PLAN WILL BE TO HAVE THE PATIENT D/C TO THE PATIENT'S DTR'S HOME. CM TO CONTACT LUZMARIA WITH [facility] WHEN THE PATIENT IS READY TO D/C. CM WILL REMAIN AVIALABLE TO ASSIST AND FOLLOW NEEDED. LUZMARIA COYNE RN-[facility] [phone]
--- NOTE | 2018-08-25 18:56 | NUR ---
PT VSS THIS SHIFT. PT TOLERATING O2 AT 3L PER NC THIS SHIFT. PT DOING BETTER TODAY WITH PAIN MANAGEMENT THAN YESTERDAY. PT CHANGED TO DNR STATUS TODAY AND THE FAMILY AND PT ARE PLANNING TO DC TO HOSPICE, PT CURRENTLY HAS [employer] RUNNING. PT WENT FOR LIVER BX TODAY AND TOLERATED PROCEDURE WITH NO INCREASED C/O PAIN. PT RESTING SINCE LAST DOSE OF DILUADID. WILL UPDATE ONCOMING RN
[2018-08-26 03:50] VITALS: BP 143/65
--- NOTE | 2018-08-26 05:59 | NUR ---
PT SLEPT MOST OF SHIFT. ASSESSMENT DOCUMENTED. MEDS GIVEN PER E-MAR. PICC PATENT. ABX INFUSED. PAIN MEDS GIVEN PER E-MAR. PT REPOSITIONED ALLOWED. BIPAP WORN WHILE SLEEPING, O2 AT 3L NC WORN WHILE AWAKE. WILL CONTINUE WITH PLAN OF CARE.
[2018-08-26 07:45] VITALS: BP 145/82
--- NOTE | 2018-08-26 09:07 | NUR ---
FOLLOWED UP WITH INSERTION OF PICC ON THURSDAY. ASSESSED PATIENT INSERTION SITE AND OBSERVED PRESSURE DRESSING STILL INTTACT SINCE THURSDAY. REMOVED PRESSURE DRESSING AND UNDER STERILE DRAPE AND STERILE PROCEDURE SOAKED SURGICEL WITH SALINE TO REMOVE. CLEANSED INSERTION SITE WITH CHG AND REPLACED STATLOCK, BIOPATCH AND BIO-OCCLUSIVE DRESSING. LINE FLUSHED AND CHECKED FOR PATENCY. REPORT GIVEN TO MARCELLO PINZON.
--- NOTE | 2018-08-26 11:01 | NUR ---
SHO spoke with pt about pt dc plans for home with today. Pt and pt family preference for [facility] at dc. SHO called and spoke with Jacquie in intake at [facility] who accepted the referral and arranged for all needed DME to be at the home. SHO faxed final dc orders to [facility] [phone] fax [phone]. SHO spoke with pt and pt and pt dtr about timing of transportation home; pt/family requested more time after pt hospital bed to be delivered at 3:30 pm; pt family was in agreement with a 6:30 pm pick up worker time. SHO discussed arranging for ambulance transport with dc naval surface fire support planner. Pt nurse aware.
[2018-08-26 12:00] VITALS: BP 153/76
[2018-08-26 12:08] VITALS: BP 153/76
[2018-08-26] MEDS ORDERED: AUGMENTIN 875-1 EACH PO (12:18)
[2018-08-26] MEDS ORDERED: DILAUDID 2 MG TA2 MG PO (12:21)
[2018-08-26] MEDS ORDERED: PREDNISONE 10 M10 M1 PO (12:23)
--- NOTE | 2018-08-26 15:42 | NUR ---
MICA MINER BLASTING INFORMED THAT THE PATIENT WILL NEED [facility] TRANSPORT HOME AT 1830. D/C CERTIFIED ORTHOTIST PRACTICE MANAGER SPOKE TO [facility] TO INFORM OF THE NEED TO SETUP TRANSPORT, AND FAXED THE PATIENTS FACESHEET, AND PATIENT TRANSFER FORM. [facility] CONFIRMS TIME OF TRANSPORT. D/C CERTIFIED ORTHOTIST PRACTICE MANAGER INFORMED THE RN IN-CHARGE OF THE PATIENT OF THE PATIENT'S TIME OF TRANSPORT. RN IN AGREEMENT. CM WILL REMAIN AVAILABLE TO ASSIST AAND FOLLOW NEEDED.
[2018-08-26 16:08] VITALS: BP 153/76
[2018-08-26] MEDS ORDERED: NYSTATIN100000 UNI SW&SWALLOW (16:12)
--- NOTE | 2018-08-26 18:48 | NUR ---
PATIENT HAS BEEN ALERT AND ORIENTED TODAY, PLEASANT. FAMILY AT BEDSIDE TODAY. PATIENT IS GOING HOME ON HOSPICE. VERONICA REMAINS IN PLACE, PICC LINE PULLED AND PRESSURE HELD UNTIL BLEEDING STOPPED. VITAL SIGNS HAVE BEEN STABLE ON 3.5 LITERS OF OXYGEN. PATIENT LEFT VIA AMBULANCE TO HOME WITH HOSPICE. REPORT CALLED AND GAVE TO HOSPICE NURSE. FAMILY LEFT WITH PATIENT.
[2018-08-26 18:52] VITALS: BP 153/76
--- NOTE | 2018-08-31 14:11 | PATH ---
[address] [address] PATHOLOGY RPT PROCEDURE Name: VERMACARLITA Room: [address] IN .R.#: [id number] Admission: 08/17/18 Date of : 58 Discharge: 08/26/18 Report #: [id number] Path Case #: [id number] [facility] Accession Number: [id number] . 01 Material submitted: . LIVER TISSUE . 01 Clinical history: . Liver mets Liver lesion, 2.6 x 2.7 x 2.2 cm . 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 SEE COMMENT. (GAYLE:rosana; 08/30/2018) MBZohaib/08/30/2018 . 02 Comment: Multiple cores of liver show aggregates of malignant cells associated with prominent tumor necrosis. A panel of properly controlled immunohistochemical stains performed on A3 shows the malignant cells to have the following characteristics supporting the diagnosis: CD56: Strong positive. CK7: Strong positive. CK20: Negative. TTF-1: Positive. Keratin AE1/AE3: Cytoplasmic positive. P40: Negative. . Dr. Leger notified of preliminary findings at approximately 11:50 on 08/27/2018. Reviewed with Dr. Jesica Rider who agrees with the diagnosis. . (GAYLE:histology supervisor; 08/30/2018) . 02 Electronically signed: . Hunter Taylor MD, Pathologist NPI- [id number] . 01 Gross description: . Received in formalin labeled "Carlita Verma, liver biopsy," are four needle cores of lynch soft tissue ranging from 0.6 to 1.4 cm in length and measuring 0.1 cm each in diameter. The specimen is submitted entirely in cassettes A1 through A3. ([facility]; 08/26/2018) XDC/XDC . [address] [place] [address] PATHOLOGY RPT PROCEDURE Name: CARLITA VERMA Room: [address] IN [facility]#: [id number] Admission: 08/17/18 Date of : 58 Discharge: 08/26/18 Report #: [id number] Path Case #: [id number] Pathologist provided ICD-10: C22.9 . 02 CPT . 767988, [id number], [id number] Specimen Comment: A courtesy copy of this report has been sent to Specimen Comment: [phone], , , . Specimen Comment: Report sent to ,DR VELARDE,DR CHARLES / DR HARDEN Specimen Comment: A duplicate report has been generated due to demographic updates. Performed at: [address], [place], [place] [id number] MD José Manuel Muro MD Phone: [phone] Performed at: [facility] [address], [place], [place] [id number] MD Hunter Taylor MD Phone: [phone]
== END 2018-08-26 18:55 | disposition hospice, home (50) | DRG 177 ==
LOC: M.ERS 13:49 → M.3W 16:14 → M.TBA-ER 16:14 → M.3W 18:51
PROVIDERS: Emergency Medicine; Family Medicine; Internal Medicine; ADMIT Internal Medicine
PROC: 02HV33Z Insertion of Infusion Device into Superior Vena Cava, Percutaneous Approach (ICD-10-PCS; principal; 2018-08-23)
PROC: 0FB13ZX Excision of Right Lobe Liver, Percutaneous Approach, Diagnostic (ICD-10-PCS; 2018-08-25)
DX: J69.0 Pneumonitis due to inhalation of food and vomit (principal); J96.21 Acute and chronic respiratory failure with hypoxia; R65.11 Systemic inflammatory response syndrome (SIRS) of non-infectious origin with acute organ dysfunction; J96.22 Acute and chronic respiratory failure with hypercapnia; J44.1 Chronic obstructive pulmonary disease with (acute) exacerbation; N18.4 Chronic kidney disease, stage 4 (severe); E44.0 Moderate protein-calorie malnutrition; K62.5 Hemorrhage of anus and rectum; Z96.643 Presence of artificial hip joint, bilateral; F41.0 Panic disorder [episodic paroxysmal anxiety]; G89.29 Other chronic pain; M54.9 Dorsalgia, unspecified; K21.9 Gastro-esophageal reflux disease without esophagitis; M19.90 Unspecified osteoarthritis, unspecified site; D64.9 Anemia, unspecified; R91.8 Other nonspecific abnormal finding of lung field; K58.9 Irritable bowel syndrome, unspecified; I25.10 Atherosclerotic heart disease of native coronary artery without angina pectoris; G47.33 Obstructive sleep apnea (adult) (pediatric); N14.1 Nephropathy induced by other drugs, medicaments and biological substances; T50.8X5A Adverse effect of diagnostic agents, initial encounter; Z68.32 Body mass index [BMI] 32.0-32.9, adult; Y92.89 Other specified places as the place of occurrence of the external cause; Z90.5 Acquired absence of kidney; Z87.891 Personal history of nicotine dependence; Z79.82 Long term (current) use of aspirin; Z79.899 Other long term (current) drug therapy; Z88.2 Allergy status to sulfonamides; Z91.040 Latex allergy status; Z80.1 Family history of malignant neoplasm of trachea, bronchus and lung; Z83.3 Family history of diabetes mellitus; Z82.5 Family history of asthma and other chronic lower respiratory diseases; Z82.49 Family history of ischemic heart disease and other diseases of the circulatory system